=== PATIENT | female | born 1960 | race Two or more races ===

== ENCOUNTER 2024-12-25 01:36 | Inpatient (IN) | payer OTHER ==
[~2024-12-25] VITALS: Ht 152.4 cm; Wt 59.0 kg
[2024-12-25] MEDS ORDERED: SYNTHROID50 MCG PO (01:57)
--- NOTE | 2024-12-25 01:57 | NUR ---
FEMINA VERBALZIA KATERIN DOLOR ABDOMINAL QUE COMENZO HACE APROX 1 HR, NIEGA VOMITOS. SE AKOSUA S/V Y SE UBICA.
[2024-12-25] MEDS ORDERED: PROMETHAZINE HCL 50 MG/ML AMPUL IM STA (02:57)
[2024-12-25] MEDS ORDERED: MORPHINE SULFATE 4 MG/ML VIAL IV STA ×2 (02:57→05:15)
[2024-12-25] MEDS ORDERED: 0.9 % SODIUM CHLORIDE 1,000 ML IV ONE (03:00)
--- NOTE | 2024-12-25 03:59 | NUR ---
SE EJECUTAN ORDENES MEDICAS EN BUNN TOTALIDAD.
[2024-12-25 04:15] LABS: HEMATOCRIT 35.7 % (36.0-45.00); HEMOGLOBIN 12.1 g/dL (12.0-15.00); MEAN CELL VOLUME 91.9 fL (80.00-100.00); MEAN CORPUSCULAR HEMOGLOBIN 31.2 pg (27.00-32.0); PLATELET COUNT 265 K/uL (150-450); RED BLOOD COUNT 3.88 M/uL (4.00-6.00)
[2024-12-25 04:37] LABS: ALBUMIN 3.4 gm/dL (3.4-5.0); ALKALINE PHOSPHATASE 69 U/L (50-136); ALT/SGPT 24 U/L (12-78); AMYLASE 79 U/L (25-115); ANION GAP 6 (10.0-20.0); AST/SGOT 22 U/L (15-37); BILIRUBIN TOTAL 0.29 mg/dL (0.3-1.2); BILIRUBIN,CONJUGATED < 0.10 mg/dL (0.0-0.2); BILIRUBIN,UNCONJUGATED 0.19 mg/dL (0.0-0.6); BLOOD UREA NITROGEN 16 mg/dL (7-18); BUN CREA RATIO 23 (7.0-25.0); CALCIUM 8.6 mg/dL (8.5-10.1); CARBON DIOXIDE 28 mEq/L (21-32); CHLORIDE 111 mmol/L (98-107); GFR 83.98; GLOBULINA 3.3 G/DL (2.4-3.5); GLUCOSE FASTING 130 mg/dL (65-100); LIPASE 51 U/L (13-75); OSMOLALITY SERUM 282 MOSM/KG (275-295); POTASSIUM 4.64 mEq/L (3.5-5.1); SODIUM 140 mmol/L (136-145); TOTAL PROTEIN 6.7 gm/dL (6.4-8.2)
[2024-12-25 04:41] LABS: URINE APPEARANCE Clear; URINE BILIRRUBIN Negative (NEGATIVE); URINE BLOOD Negative; URINE COLOR Yellow; URINE GLUCOSE Negative (NEGATIVE); URINE KETONE Negative (NEGATIVE); URINE LEUKOCYTE Negative; URINE NITRATE Negative; URINE PROTEIN Negative (NEGATIVE); URINE UROBILINOGEN 0.2 E.U./dl
[2024-12-25 04:42] LABS: URINE BACTERIA 24.4 uL (0.0-1933); URINE EPITHELIAL CELLS 14.3 uL (0.0-38.8); URINE RBC 4.4 uL (0.0-20.8); URINE WBC 16.7 uL (0.0-23.2)
[2024-12-25 04:54] LABS: URINE CAST 1.03 uL (0.0-1.40)
[2024-12-25 06:53] LABS: INR 0.97; PROTHROMBIN TIME 10.6 SECONDS (9.0-11.5)
[2024-12-25] MEDS ORDERED: MORPHINE SULFATE 4 MG/ML CARTRIDGE IV ONE (10:00)
[2024-12-25 14:59] LABS: HEMATOCRIT 37.6 % (36.0-45.00); HEMOGLOBIN 12.6 g/dL (12.0-15.00); MEAN CELL VOLUME 93.6 fL (80.00-100.00); MEAN CORPUSCULAR HEMOGLOBIN 31.3 pg (27.00-32.0); MEAN CORPUSCULAR HGB CONC 33.5 g/dl (32.0-36.0); PLATELET COUNT 287 K/uL (150-450); RED BLOOD COUNT 4.02 M/uL (4.00-6.00); RED CELL DISTRIBUTION WIDTH 14.1 % (11.5-14.5)
[2024-12-25] MEDS ORDERED: CIPROFLOXACIN IN 5 % DEXTROSE 400 MG/200 ML PIGGYBAG IV ONE (15:30)
[2024-12-25] MEDS ORDERED: METRONIDAZOLE/SODIUM CHLORIDE 500 MG/100 ML PIGGYBACK IV ONE (15:30)
[2024-12-25] MEDS ORDERED: ONDANSETRON HCL 2 MG/ML VIAL IV ONE (19:00)
[2024-12-25] MEDS ORDERED: 0.9 % SODIUM CHLORIDE 1,000 ML IV STA (19:00)
[2024-12-25] MEDS ORDERED: FAMOtidine 10 MG/ML (4ML VIAL) IV PUSH ONE (19:00)
[2024-12-25] MEDS ORDERED: 0.9 % SODIUM CHLORIDE 1,000 ML IV SCH (19:15)
[2024-12-25] MEDS ORDERED: ACETAMINOPHEN 500 MG GEL..CAP PO PRN (19:30)
[2024-12-25] MEDS ORDERED: ONDANSETRON HCL 4 MG in 0.9 % SODIUM CHLORIDE 50 ML IV PRN (19:30)
[2024-12-25] MEDS ORDERED: KETOROLAC TROMETHAMINE 15 MG VIAL IU ONE (19:30)
[2024-12-25] MEDS ORDERED: MORPHINE SULFATE 2 MG/ML CARTRIDGE IV PRN (19:30)
[2024-12-25] MEDS ORDERED: MORPHINE SULFATE 2 MG/ML CARTRIDGE IV ONE (19:30)
[2024-12-25] MEDS ORDERED: CIPROFLOXACIN IN 5 % DEXTROSE 200 ML IV SCH (21:00)
[2024-12-25 23:51] VITALS: BP 168/71; O2SAT 95
[2024-12-26] MEDS ORDERED: METRONIDAZOLE/SODIUM CHLORIDE 100 ML IV SCH (01:00)
[2024-12-26 01:37] VITALS: BP 141/59; O2SAT 100
[2024-12-26] MEDS ORDERED: LEVOTHYROXINE SODIUM 25 MCG TABLET PO SCH (06:00)
[2024-12-26 08:02] VITALS: BP 161/68
[2024-12-26] MEDS ORDERED: METOPROLOL SUCCINATE 25 MG TAB.SR.24H PO SCH (09:00)
[2024-12-26] MEDS ORDERED: FAMOTIDINE/PF 20 MG in 0.9 % SODIUM CHLORIDE 8 ML IV PUSH SCH (09:00)
[2024-12-26] MEDS ORDERED: ENOXAPARIN SODIUM 40 MG/0.4 ML SYRINGE SUBCUTANEO SCH (09:00)
[2024-12-26] MEDS ORDERED: LOSARTAN POTASSIUM 25 MG TABLET PO SCH (09:00)
[2024-12-26 17:33] VITALS: BP 179/69; O2SAT 99
[2024-12-27 02:32] VITALS: BP 144/63
[2024-12-27 07:30] LABS: HEMATOCRIT 36.8 % (36.0-45.00); HEMOGLOBIN 12.7 g/dL (12.0-15.00); MEAN CELL VOLUME 92.7 fL (80.00-100.00); MEAN CORPUSCULAR HEMOGLOBIN 31.9 pg (27.00-32.0); MEAN CORPUSCULAR HGB CONC 34.4 g/dl (32.0-36.0); PLATELET COUNT 301 K/uL (150-450); RED BLOOD COUNT 3.97 M/uL (4.00-6.00); RED CELL DISTRIBUTION WIDTH 14.1 % (11.5-14.5)
[2024-12-27 08:06] LABS: ALBUMIN 3.3 gm/dL (3.4-5.0); BILIRUBIN TOTAL 0.66 mg/dL (0.3-1.2); CHOL HDL RATIO 2.2 (0-5.0); CREATININE SERUM 0.58 mg/dL (0.55-1.02); GFR 104.33; GLOBULINA 3.1 G/DL (2.4-3.5); POTASSIUM 4.15 mEq/L (3.5-5.1); TOTAL PROTEIN 6.4 gm/dL (6.4-8.2); TSH 2.41 uIU/mL (0.358-3.74)
[2024-12-27 09:59] VITALS: BP 190/70; O2SAT 98
[2024-12-27 18:18] VITALS: BP 178/68
[2024-12-28 02:29] VITALS: BP 147/54; O2SAT 97
[2024-12-28 08:13] LABS: HEMATOCRIT 33.4 % (36.0-45.00); HEMOGLOBIN 11.4 g/dL (12.0-15.00); MEAN CELL VOLUME 93.6 fL (80.00-100.00); MEAN CORPUSCULAR HGB CONC 34.2 g/dl (32.0-36.0); PLATELET COUNT 254 K/uL (150-450); RED BLOOD COUNT 3.57 M/uL (4.00-6.00); RED CELL DISTRIBUTION WIDTH 13.5 % (11.5-14.5)
[2024-12-28 08:23] LABS: CALCIUM 7.9 mg/dL (8.5-10.1); CREATININE SERUM 0.58 mg/dL (0.55-1.02); GFR 104.33; POTASSIUM 4.09 mEq/L (3.5-5.1)
[2024-12-28 09:59] VITALS: BP 158/68; O2SAT 97
[2024-12-28 17:29] LABS: PH,URINE 5.5 (5.0-8.0); URINE APPEARANCE Clear; URINE BILIRRUBIN Negative (NEGATIVE); URINE BLOOD Negative; URINE COLOR Yellow; URINE GLUCOSE Negative (NEGATIVE); URINE LEUKOCYTE Small; URINE NITRATE Negative; URINE PROTEIN Negative (NEGATIVE); URINE UROBILINOGEN 0.2 E.U./dl
[2024-12-28 17:30] LABS: URINE EPITHELIAL CELLS 16.6 uL (0.0-38.8); URINE WBC 4.2 uL (0.0-23.2)
[2024-12-28 17:45] LABS: URINE BACTERIA 2.4 uL (0.0-1933); URINE CAST 0.14 uL (0.0-1.40); URINE KETONE 40 (NEGATIVE)
[2024-12-28 17:46] LABS: URINE MUCUS SCANT
[2024-12-28] MEDS ORDERED: PIPERACILLIN/TAZOBACTAM SODIUM 3.375 GM in 0.9 % SODIUM CHLORIDE 100 ML IV SCH (18:00)
[2024-12-28 20:07] VITALS: BP 127/57; O2SAT 97
[2024-12-29 01:38] VITALS: BP 119/60
[2024-12-29 06:24] LABS: HEMATOCRIT 32.4 % (36.0-45.00); HEMOGLOBIN 11.2 g/dL (12.0-15.00); MEAN CELL VOLUME 92.2 fL (80.00-100.00); MEAN CORPUSCULAR HEMOGLOBIN 31.9 pg (27.00-32.0); MEAN CORPUSCULAR HGB CONC 34.6 g/dl (32.0-36.0); PLATELET COUNT 242 K/uL (150-450); RED BLOOD COUNT 3.52 M/uL (4.00-6.00); RED CELL DISTRIBUTION WIDTH 13.7 % (11.5-14.5)
[2024-12-29 06:53] LABS: CALCIUM 7.8 mg/dL (8.5-10.1); CREATININE SERUM 0.52 mg/dL (0.55-1.02); GFR 118.34; POTASSIUM 3.55 mEq/L (3.5-5.1)
[2024-12-29 06:54] LABS: C-REACTIVE PROTEIN 1.82 MG/DL (0.00-0.29)
[2024-12-29 09:32] VITALS: BP 150/68
[2024-12-29] MEDS ORDERED: SIMETHICONE 125 MG CAPSULE PO SCH (14:56)
[2024-12-29] MEDS ORDERED: ONDANSETRON HCL 4 MG in 0.9 % SODIUM CHLORIDE 50 ML IV SCH (17:00)
[2024-12-29] MEDS ORDERED: SUCRALFATE 1 G TABLET PO SCH (17:00)
[2024-12-29 17:39] VITALS: BP 141/58; O2SAT 97
[2024-12-30 01:33] VITALS: BP 145/74
[2024-12-30 07:48] LABS: FECAL LEUKOCYTES POSITIVE (NEGATIVE); ob POSITIVE (NEGATIVE)
[2024-12-30 08:29] VITALS: BP 155/67; O2SAT 98
[2024-12-30 18:17] VITALS: BP 140/72; O2SAT 98
[2024-12-31 01:17] VITALS: BP 147/66
[2024-12-31 08:42] LABS: HEMATOCRIT 32.1 % (36.0-45.00); HEMOGLOBIN 11.1 g/dL (12.0-15.00); MEAN CELL VOLUME 92.7 fL (80.00-100.00); MEAN CORPUSCULAR HEMOGLOBIN 31.9 pg (27.00-32.0); MEAN CORPUSCULAR HGB CONC 34.4 g/dl (32.0-36.0); PLATELET COUNT 258 K/uL (150-450); RED BLOOD COUNT 3.47 M/uL (4.00-6.00); RED CELL DISTRIBUTION WIDTH 13.6 % (11.5-14.5)
[2024-12-31 08:47] LABS: ERYTHROCYTE SEDIMENTATION RATE 19 mm/hr
[2024-12-31 08:50] VITALS: BP 150/68
[2024-12-31] MEDS ORDERED: HYOSCYAMINE SULFATE 0.125 MG TAB.SUBL SL PRN (09:00)
[2024-12-31] MEDS ORDERED: MULTIVIT INFUSN,ADULT 4,VIT K 10 ML VIAL IV SCH (09:00)
[2024-12-31 17:11] VITALS: BP 127/60; O2SAT 100
[2025-01-01 01:00] VITALS: BP 156/67
[2025-01-01 08:51] VITALS: BP 162/77; O2SAT 97
[2025-01-01] MEDS ORDERED: HYOSCYAMINE0.125 M1 SL (16:06)
[2025-01-01] MEDS ORDERED: SIMETHICONE125 M1 PO (16:06)
[2025-01-01] MEDS ORDERED: INTESTINEX680 M2 PO (16:06)
[2025-01-01] MEDS ORDERED: CARAFATE1 GM PO (16:06)
[2025-01-01] MEDS ORDERED: PEPCID AC20 MG PO (16:06)
== END 2025-01-01 16:24 | disposition home or self-care (01) | DRG 392 ==
LOC: ER 01:38 → MEDJ 21:09
PROVIDERS: Emergency Medicine; General Practice; Internal Medicine; Internal Medicine Infectious Disease; ADMIT Internal Medicine; ATTEND Internal Medicine
PROC: BW21ZZZ Computerized Tomography (CT Scan) of Abdomen and Pelvis (ICD-10-PCS; principal; 2024-12-25)
PROC: BW40ZZZ Ultrasonography of Abdomen (ICD-10-PCS; 2024-12-28)
DX: K52.9 Noninfective gastroenteritis and colitis, unspecified (principal); R65.10 Systemic inflammatory response syndrome (SIRS) of non-infectious origin without acute organ dysfunction; R10.9 Unspecified abdominal pain; R11.0 Nausea; I10 Essential (primary) hypertension; E03.9 Hypothyroidism, unspecified